=== PATIENT | male | born 1985 | race Caucasian/White ===

== ENCOUNTER 2018-04-30 08:41 | Emergency (ER) | payer OTHER ==
[2018-04-30 08:56] VITALS: BP 118/81
[2018-04-30] MEDS: IBUPROFEN 800 MG TABLET PO STA (10:16)
--- NOTE | 2018-04-30 10:48 | ED Physician Documentation ---
PD HPI HEENT - Stated complaint Stated Complaint: NAUSEA/CHILLS/THROAT PX - Chief complaint Chief Complaint: Resp - History obtained from History obtained from: Patient - History of Present Illness Timing - onset: How many days ago (2) Timing - duration: Days (2) Timing - details: Still present Location: Sinuses, Throat Associated symptoms: Fever, Congestion, Cough Similar symptoms before: Has not had sx before - Additional information Additional information: The patient is a 33-year-old [employer] male who presents with a 2 day history of cough, sore throat, and complains of "pressure in my face and head," that is worse with coughing. His cough is nonproductive. He reports associated fever and chills, as well as nausea. He denies vomiting or abdominal pain. He denies history of similar symptoms in the past. He does not smoke cigarettes, but does vape nicotine. Review of Systems Constitutional: reports: Fever, Chills, Myalgias Eyes: denies: Irritation Ears: denies: Ear pain Nose: reports: Congestion Throat: reports: Sore throat Cardiac: denies: Chest pain / pressure Respiratory: reports: Cough. denies: Dyspnea GI: reports: Nausea. denies: Abdominal Pain, Vomiting : denies: Dysuria Skin: denies: Rash Musculoskeletal: denies: Back pain Neurologic: reports: Headache (mild) PD PAST MEDICAL HISTORY - Past Medical History Past Medical History: Yes Cardiovascular: None Respiratory: None Neuro: Seizure disorder Endocrine/Autoimmune: None GI: GERD : None HEENT: None Psych: None Musculoskeletal: None Derm: None - Past Surgical History Past Surgical History: No - Present Medications Home Medications: Ambulatory Orders Medication Instructions Recorded Confirmed Gabapentin [Neurontin] 300 mg PO DAILY 11/30/14 02/08/16 Ibuprofen [Motrin] 800 mg PO Q8H PRN #30 tablet 02/08/16 Ondansetron HCl [Zofran] 4 mg PO Q6H PRN #10 tablet 02/08/16 Oxycodone HCl/Acetaminophen 1 - 2 tab PO Q4H PRN #15 tablet 02/08/16 [Percocet 5-325 mg Tablet] Tamsulosin [Flomax] 0.4 mg PO DAILY #7 capsule 02/08/16 Ibuprofen 800 mg PO TID PRN #30 tablet 04/30/18 - Allergies Allergies/Adverse Reactions: Allergies Allergy/AdvReac Type Severity Reaction Status Date / Time No Known Drug Allergies Allergy Verified 04/30/18 08:55 - Social History Does the pt smoke?: Yes Smoking Status: Current every day smoker Does the pt drink ETOH?: Yes ETOH Use: Wine, Beer, Liquor Does the pt have substance abuse?: No - Immunizations Immunizations are current?: Yes - POLST Patient has POLST: No PD ED PE NORMAL - Vitals Vital signs reviewed: Yes (normal) - General General: Alert and oriented X 3, Well developed/nourished - HEENT HEENT: Atraumatic, Ears normal, Other (Mild oropharyngeal erythema, without exudates or peritonsillar swelling.) - Neck Neck: Supple, no meningeal sign, No adenopathy - Cardiac Cardiac: RRR, No murmur - Respiratory Respiratory: No respiratory distress, Clear bilaterally - Abdomen Abdomen: Soft, Non tender - Back Back: No CVA TTP - Derm Derm: No rash - Extremities Extremities: No edema, No calf tenderness / cord - Neuro Neuro: Alert and oriented X 3, No motor deficit, No sensory deficit Results - Vitals Vitals: Oxygen O2 Source Room air - Labs Labs: Laboratory Tests 04/30/18 04/30/18 09:45 09:45 Influenza A (Rapid) Negative Influenza B (Rapid) Negative Group A Strep Rapid Negative PD MEDICAL DECISION MAKING - ED course Complexity details: reviewed results, re-evaluated patient, considered differential, d/w patient ED course: The patient's presentation is most consistent with viral upper respiratory infection. Influenza swab and rapid strep screen are both negative. Treatment in the emergency department included administration of ibuprofen 800 mg orally. I discussed with him the expected course of illness, symptomatic treatment and outpatient follow-up, as well as potentially worrisome signs or symptoms that should prompt reevaluation in the emergency department. Departure - Departure Disposition: 01 Home, Self Care Clinical Impression: Viral URI with cough Condition: Stable Instructions: ED URI Viral Follow-Up: KRISH DIALLO [Primary Care Provider] - Prescriptions: Ibuprofen 800 mg PO TID PRN #30 tablet PRN Reason: Cold Symptons Comments: Your symptoms are most consistent with a viral upper respiratory infection. Antibiotics are not clinically indicated for this type of viral infection. Treatment should be geared toward managing symptoms: Drink plenty of fluids. Use Tylenol or ibuprofen as needed for fever or discomfort. Wash your hands frequently, and cover your cough. Follow up with your primary physician, or return to the emergency department, if not improving within 1-2 weeks. Return to the emergency department if you develop increasing difficulty breathing, or otherwise worsening symptoms. Forms: Activity restrictions Discharge Date/Time: 04/30/18 11:07
== END 2018-04-30 11:07 | disposition home or self-care (01) ==
LOC: ED 08:41
DX: J06.9 Acute upper respiratory infection, unspecified (principal); B97.89 Other viral agents as the cause of diseases classified elsewhere; F17.200 Nicotine dependence, unspecified, uncomplicated
CPT/HCPCS: 87070; 87275; 87276; 87430; 99283; A9270

== ENCOUNTER 2021-10-20 20:15 | Emergency (ER) | payer OTHER ==
[2021-10-20 20:28] VITALS: BP 140/95
[2021-10-20] MEDS ORDERED: PROPARACAINE 0.5% OPHTH DROPS 15 ML RIGHTEYE STA (20:41)
[2021-10-20] MEDS ORDERED: ERYTHROMYCIN OPHTH OINT 1 GM TUBE RIGHTEYE STA (21:04)
--- NOTE | 2021-10-20 21:06 | ED Physician Documentation ---
PD HPI OPHTHO - Stated complaint Stated Complaint: R EYE PX - Chief complaint Chief Complaint: Heent - History obtained from History obtained from: Patient - Additional information Additional information: He accidentally contacted a cardboard box with his right just prior to arrival and has severe right eye pain. Review of Systems Constitutional: reports: Reviewed and negative Eyes: reports: Reviewed and negative Ears: reports: Reviewed and negative Cardiac: reports: Reviewed and negative Respiratory: reports: Reviewed and negative PD PAST MEDICAL HISTORY - Past Medical History Past Medical History: Yes Cardiovascular: None Respiratory: None Neuro: Seizure disorder Endocrine/Autoimmune: None GI: GERD : None, Kidney stones HEENT: None Psych: None Musculoskeletal: None Derm: None - Past Surgical History Past Surgical History: No - Present Medications Home Medications: Ambulatory Orders Medication Instructions Recorded Confirmed Gabapentin [Neurontin] 2,000 mg PO BID 11/30/14 10/20/21 Erythromycin Base [Erythromycin 1 appful OP 5XD 7 Days #1 gm 10/20/21 Ophthalmic Ointment] - Allergies Allergies/Adverse Reactions: Allergies Allergy/AdvReac Type Severity Reaction Status Date / Time No Known Drug Allergies Allergy Verified 04/30/18 08:55 - Social History Does the pt smoke?: Yes Smoking Status: Current every day smoker Does the pt drink ETOH?: Yes Does the pt have substance abuse?: No - Immunizations Immunizations are current?: Yes - POLST Patient has POLST: No PD ED PE NORMAL - Vitals Vital signs reviewed: Yes - General General: Alert and oriented X 3, No acute distress - HEENT HEENT: PERRL, EOMI, Other (There is a very large but shallow corneal abrasion over the central right eye with fluorescein uptake but negative Zane sign.) - Neuro Neuro: Alert and oriented X 3, Normal speech - Psych Psych: Normal mood, Normal affect Results - Vitals Vitals: Vital Signs - 24 hr 10/20/21 20:24 Temperature 36.8 C Heart Rate 64 Respiratory 16 Rate Blood Pressure 140/95 H O2 Saturation 99 Oxygen O2 Source Room air PD MEDICAL DECISION MAKING - ED course ED course: Pain resolved after proparacaine. He was administered 1-9 diluted proparacaine, totaling 1 mL 2 used for no more than 24 hours for pain control. Departure - Departure Disposition: 01 Home, Self Care Clinical Impression: Corneal abrasion Qualifiers: Encounter type: initial encounter Laterality: right Qualified Code(s): S05.01XA - Injury of conjunctiva and corneal abrasion without foreign body, right eye, initial encounter Condition: Good Record reviewed to determine appropriate education?: Yes Instructions: ED Eye Injury Corneal Abrasion Follow-Up: Merrill Forbes MD [Provider Admit Priv/Credential] - Prescriptions: Erythromycin Base [Erythromycin Ophthalmic Ointment] 1 appful OP 5XD 7 Days #1 gm Comments: As discussed, you have a large corneal abrasion on the right eye. I have given you antibiotic ointment to use 5 times a day. We have also given you about 1 mL of 1:9 diluted proparacaine, to use no more than 24 hours for the pain. You should follow-up with an license and permit specialist. You can go to the [facility] tomorrow to try to see the presentation team member. If you are not having luck, the name and number of the local civilian olive pitter in [place] is listed on this form for you to call. Return if worsening. Forms: Activity restrictions
== END 2021-10-20 21:20 | disposition home or self-care (01) ==
LOC: ED 20:15
DX: S05.01XA Injury of conjunctiva and corneal abrasion without foreign body, right eye, initial encounter (principal); W22.8XXA Striking against or struck by other objects, initial encounter; F17.200 Nicotine dependence, unspecified, uncomplicated
CPT/HCPCS: 99282; J3490